=== PATIENT | male | born 1995 | race Caucasian/White ===

== ENCOUNTER 2017-11-27 11:11 | Emergency (ER) | payer OTHER ==
--- NOTE | 2017-11-27 11:44 | ER Document Report ---
ED Medical Screen (RME) - General Mode of Arrival: Ambulatory Information source: Patient TRAVEL OUTSIDE OF THE [place] IN LAST 30 DAYS: Yes <HAILEY CHAUDHARI - Last Filed: 11/27/17 11:39> <FLAVIO VELOZ - Last Filed: 11/27/17 12:24> - General Chief Complaint: Abdominal Pain Stated Complaint: ABDOMINAL PAIN Time Seen by Provider: 11/27/17 11:34 Notes: Patient is a 22 year old male presenting to the emergency department complaining of left flank pain and left lower abdominal pain onset 1 week ago worsening this morning. Patient states the pain starts on the left side of his lower back and radiates into his left lower abdomen. He describes the pain as a stabbing. Patient reports receiving 2 new back tattoos. He denies any chest pain, trouble breathing, dysuria, hematuria, rash, fevers, new shoes or exercise routines, recent trauma or injury. GENERAL: Alert, interacts well. No acute distress. HEAD: Normocephalic, Atraumatic. NECK: Full range of motion. Supple. Trachea midline. LUNGS: Clear to auscultation bilaterally, no wheezes, rales, or rhonchi. No respiratory distress. HEART: Regular rate and rhythm. No murmurs, gallops, or rubs. ABDOMEN: Soft, LUQ tenderness to palpation. Non-distended. Bowel sounds present in all 4 quadrants. EXTREMITIES: Moves all four extremities spontaneously. PSYCH: Normal affect, normal mood. SKIN: No rashes or lesions noted. BACK: Left flank tenderness to palpation. I have greeted and performed a rapid initial assessment of this patient. A comprehensive ED assessment and evaluation of the patient, analysis of test results and completion of the medical decision making process will be conducted by additional ED providers. (HAILEY CHAUDHARI) - Related Data Allergies/Adverse Reactions: No Known Allergies Allergy (Verified 11/27/17 11:12) Past Medical History - Social History Chew tobacco use (# tins/day): No Frequency of alcohol use: Occasional Drug Abuse: None Renal/ Medical History: Denies: Hx Peritoneal Dialysis <HAILEY CHAUDHARI - Last Filed: 11/27/17 11:39> - Vital signs Vitals: Temp Pulse Resp BP Pulse Ox 98.5 F 57 L 16 139/88 H 100 11/27/17 11:21 11/27/17 11:21 11/27/17 11:21 11/27/17 11:21 11/27/17 11:21 Course - Laboratory Result Diagrams: 11/27/17 11:45 11/27/17 11:45 <FLAVIO VELOZ - Last Filed: 11/27/17 12:24> - Vital Signs Vital signs: Temp Pulse Resp BP Pulse Ox 98.5 F 57 L 16 139/88 H 100 11/27/17 11:21 11/27/17 11:21 11/27/17 11:21 11/27/17 11:21 11/27/17 11:21 - Laboratory Laboratory results interpreted by me: 11/27/17 11/27/17 11:45 11:45 Sodium 145.8 H AST 15 L Urine Protein 30 H Urine Blood LARGE H
[2017-11-27 11:58] LABS: ABSOLUTE BASOPHILS # (AUTO) 0.1 10^3/uL (0.0-0.2); ABSOLUTE EOSINOPHILS # (AUTO) 0.4 10^3/uL (0.0-0.6); ABSOLUTE LYMPHOCYTES (AUTO) 1.8 10^3/uL (0.5-4.7); ABSOLUTE MONOCYTES (AUTO) 0.7 10^3/uL (0.1-1.4); ABSOLUTE NEUT (AUTO) 3.7 10^3/uL (1.7-8.2); BASOPHILS % (AUTO) 0.9 % (0-2); EOSINOPHILS % (AUTO) 5.8 % (0-6); HEMATOCRIT 45.2 % (37.9-51.0); HEMOGLOBIN 15.3 g/dL (13.5-17.0); LYMPHOCYTES % (AUTO) 27.1 % (13-45); MEAN CORPUSCULAR HEMOGLOBIN 29.6 pg (27.0-33.4); MEAN CORPUSCULAR HGB CONC 33.8 g/dL (32.0-36.0); MEAN CORPUSCULAR VOLUME 87 fl (80-97); MONOCYTES % (AUTO) 11.1 % (3-13); PLATELET COUNT 286 10^3/uL (150-450); RED BLOOD COUNT 5.18 10^6/uL (4.35-5.55); RED CELL DISTRIBUTION WIDTH 13.4 % (11.5-14.0); SEGMENTED NEUTROPHILS % (AUTO) 55.1 % (42-78); TOTAL CELLS COUNTED % (AUTO) 100 %; WHITE BLOOD COUNT 6.7 10^3/uL (4.0-10.5)
[2017-11-27 12:15] LABS: ALANINE AMINOTRANSFERASE 23 U/L (21-72); ALBUMIN 4.8 g/dL (3.5-5.0); ALKALINE PHOSPHATASE 117 U/L (38-126); ANION GAP 12 (5-19); ASPARTATE AMINO TRANSFERASE 15 U/L (17-59); BILIRUBIN,DIRECT 0.1 mg/dL (0.0-0.4); BILIRUBIN,TOTAL 1.1 mg/dL (0.2-1.3); BLOOD UREA NITROGEN 13 mg/dL (7-20); CALCIUM 9.9 mg/dL (8.4-10.2); CARBON DIOXIDE 29 mmol/L (22-30); CHLORIDE 105 mmol/L (98-107); GLUCOSE 95 mg/dL (75-110); POTASSIUM 4.5 mmol/L (3.6-5.0); SODIUM 145.8 mmol/L (137-145); TOTAL PROTEIN 7.6 g/dL (6.3-8.2)
[2017-11-27 12:19] LABS: APPEARANCE,URINE SLIGHTLY-CLOUDY; BILIRUBIN,URINE NEGATIVE (NEGATIVE); COLOR,URINE AMBER; GLUCOSE, URINE NEGATIVE (NEGATIVE); KETONES,URINE NEGATIVE (NEGATIVE); LEUKOCYTE ESTERASE,URINE NEGATIVE (NEGATIVE); NITRITE,URINE NEGATIVE (NEGATIVE); PROTEIN,URINE 30 mg/dL (NEGATIVE); URINE SPECIFIC GRAVITY 1.023; UROBILINOGEN,URINE NEGATIVE mg/dL (<2.0)
[2017-11-27] MEDS ORDERED: KETOROLAC TROMETHAMINE INJ/PF 30 MG/1 ML SDV IV ONE (12:24)
[2017-11-27] MEDS ORDERED: NORMAL SALINE 500 ML IV ONE (12:24)
--- NOTE | 2017-11-27 12:30 | ER Document Report ---
ED General - General Chief Complaint: Abdominal Pain Stated Complaint: ABDOMINAL PAIN Time Seen by Provider: 11/27/17 11:34 Mode of Arrival: Ambulatory TRAVEL OUTSIDE OF THE [place] IN LAST 30 DAYS: Yes - HPI Notes: Patient is a 22-year-old male with no significant past medical history who presents to the ED complaining of left flank pain that radiates around into his groin intermittently over the last week. Patient states that the pain is worse usually in the mornings. Patient states that his urine is very dark and believes that there may be blood in his urine as well. Patient does have associated nausea and vomiting when the pain is severe. He denies any injury. He is still eating and drinking without any difficulties otherwise. He is having normal bowel movements. He has not noticed any lumps or bumps in his groin. He has not had any urethral discharge or testicular/penile pain. Denies any drug allergies. Denies any headache, fever, neck pain, URI, sore throat, chest pain, palpitations, syncope, cough, shortness of breath, wheeze, dyspnea, diarrhea, urinary retention, loss of control of bowel or bladder, numbness/tingling, saddle anesthesia, muscle paralysis/weakness, or rash. - Related Data Allergies/Adverse Reactions: No Known Allergies Allergy (Verified 11/27/17 11:12) Past Medical History - General Information source: Patient - Social History Smoking Status: Current Every Day Smoker Chew tobacco use (# tins/day): No Frequency of alcohol use: Occasional Drug Abuse: None Family History: Reviewed & Not Pertinent Patient has suicidal ideation: No Patient has homicidal ideation: No Renal/ Medical History: Denies: Hx Peritoneal Dialysis Review of Systems - Review of Systems -: Yes All other systems reviewed and negative Physical Exam - Vital signs Vitals: Temp Pulse Resp BP Pulse Ox 98.5 F 57 L 16 139/88 H 100 11/27/17 11:21 11/27/17 11:21 11/27/17 11:21 11/27/17 11:21 11/27/17 11:21 - Notes Notes: PHYSICAL EXAMINATION: GENERAL: Well-appearing, well-nourished and in no acute distress. HEAD: Atraumatic, normocephalic. EYES: Pupils equal round and reactive to light, extraocular movements intact, sclera anicteric, conjunctiva are normal. ENT: Nares patent and without discharge. oropharynx clear without exudates. No tonsilar hypertrophy or erythema. Moist mucous membranes. NECK: Normal range of motion, supple without lymphadenopathy LUNGS: Breath sounds clear to auscultation bilaterally and equal. No wheezes rales or rhonchi. HEART: Regular rate and rhythm without murmurs, rubs, gallops. ABDOMEN: Soft, nondistended abdomen. No guarding, no rebound. No masses appreciated. Normal bowel sounds present. + left CVA tenderness. + left lower quadrant/inguinal area tenderness. : No obvious hernia, lymphadenopathy, erythema, ecchymosis, or swelling noted. Non-tender to palpation of the penis/scrotum/testes. No abnormal masses palpated. No urethral discharge. Back: FROM. Strength 5+/5. No erythema, swelling, abscess, or deformity noted. Non-tender to palp down midline. Musculoskeletal: FROM to passive/active. Strength 5+/5. Extremities: No cyanosis, clubbing, or edema b/l. Peripheral pulses 2+. Capillary refill less than 3 seconds. NEUROLOGICAL: Normal speech, normal gait. PSYCH: Normal mood, normal affect. SKIN: Warm, Dry, normal turgor, no rashes or lesions noted. Course - Re-evaluation Re-evalutation: 11/27/17 13:[address] Bear who is in agreement with dispo/plan: Patient is an afebrile, well-hydrated, 22-year-old male who presents to the ED with a yeast infection and left flank pain/Lt lower abdominal pain unspecified. We suspect that he may have recently passed a stone. Vitals are acceptable without significant tachycardia, tachypnea, or hypoxia. PE is otherwise unremarkable. Evaluation of the patient's exam did not elicit any tenderness or signs of infection. CBC, CMP were unremarkable for acute pathology. Urinalysis showed hematuria and yeast without signs of infection otherwise. CT scan was unremarkable for any acute pathology. Patient is nontoxic-appearing is tolerating p.o. without difficulties. He was given Toradol IV. No other labs or imaging warranted at this time based on H&P. Low suspicion/risk for acute appendicitis, bowel obstruction, acute cholecystitis, perforated diverticulitis, incarcerated hernia, pancreatitis, perforated ulcer, peritonitis, sepsis, testicular torsion, or other systemic emergent condition at this time. Patient is aware that his condition can change from initial presentation and he needs to monitor symptoms closely and seek medical attention if any acute changes. Conservative measures otherwise for symptoms. Recheck with PCM in 2-3 days. Call urology tomorrow to schedule an appointment for further evaluation and management. Return to the ED with any worsening/ concerning symptoms otherwise as reviewed in discharge. Patient is in agreement. - Vital Signs Vital signs: Temp Pulse Resp BP Pulse Ox 98.5 F 57 L 16 139/88 H 100 11/27/17 11:21 11/27/17 11:21 11/27/17 11:21 11/27/17 11:21 11/27/17 11:21 - Laboratory Result Diagrams: 11/27/17 11:45 11/27/17 11:45 Laboratory results interpreted by me: 11/27/17 11/27/17 11:45 11:45 Sodium 145.8 H AST 15 L Urine Protein 30 H Urine Blood LARGE H Discharge - Discharge Clinical Impression: Left flank pain, Lower abdominal pain, unspecified, Yeast UTI Condition: Stable Disposition: HOME, SELF-CARE Instructions: Abdominal Pain ([facility]), Antinausea Medication ([facility]) Additional Instructions: Push fluids (i.e. water, cranberry juice) Proper hygenic technique Keep the skin clean Tylenol/ibuprofen as needed Take medications as directed F/u with your PCM in 2-3 days for a recheck Call a urologist tomorrow for further evaluation and management Return to the ED with any worsening symptoms and/or development of fever, headache, chest pain, palpitations, syncope, shortness of breath, trouble breathing, abdominal pain, n/v/d, blood in stool/urine, loss of control of bowel /bladder, urinary retention, or other worsening symptoms that are concerning to you. Prescriptions: Fluconazole [Diflucan] 150 mg PO ONCE PRN #1 tablet PRN Reason: Ondansetron [Zofran Odt 4 mg Tablet] 1 - 2 tab PO Q4H PRN #15 tab.rapdis PRN Reason: For Nausea/Vomiting Forms: Elevated Blood Pressure Referrals: MEREDITH SALMERON MD [[facility]] - Follow up in 3-5 days ZHANNA LUONG II, MD [[facility]] - Follow up in 3-5 days
--- NOTE | 2017-11-27 13:27 | RADIOLOGY REPORT (SQ) ---
EXAM DESCRIPTION: CT LTD RENAL STONE PROTOCOL ON COMPLETED DATE/TIME: 11/27/2017 12:38 pm REASON FOR STUDY: Left flank pain COMPARISON: None. TECHNIQUE: CT scan of the abdomen and pelvis performed without intravenous or oral contrast. Images reviewed with lung, soft tissue, and bone windows. Reconstructed coronal and sagittal MPR images revi ewed. All images stored on PACS. All CT scanners at this facility use dose modulation, iterative reconstruction, and/or weight based d osing when appropriate to reduce radiation dose to as low as reasonably achievable (ALARA). [facility]: Dose Right [facility]: CareDose [facility]: Dose Right [facility]: Teradose 4D [facility]: [employer] RADIATION DOSE: CT Rad equipment meets quality standard of care and radiation dose reduction techniq ues were employed. CTDIvol: 5.8 mGy. DLP: 301 mGy-cm.mGy. LIMITATIONS: None. FINDINGS: LOWER CHEST: No abnormality seen. NON-CONTRASTED LIVER, SPLEEN, ADRENALS: Liver: No abnormality. Spleen: No abnormality. Adrenals: No abnormality. PANCREAS: No abnormality. GALLBLADDER: No abnormality. RIGHT KIDNEY AND URETER: No abnormality. LEFT KIDNEY AND URETER: No abnormality. AORTA AND RETROPERITONEUM: No abnormality. BOWEL AND PERITONEAL CAVITY: No abnormality. APPENDIX: No abnormality. PELVIS, BLADDER, AND ABDOMINAL WALL:Urinary bladder: No abnormality. Prostate and seminal vesicles: No abnormality. BONES: No abnormality. IMPRESSION: NO SIGNIFICANT OR ACUTE PROCESS IN THE ABDOMEN OR PELVIS. COMMENT: Quality ID # [id number]: Final reports with documentation of one or more dose reduction techniques (e.g., Automated exposure control, adjustment of the mA and/or kV according to patient size, use of iterative reconstruction technique) TECHNICAL DOCUMENTATION: JOB ID: [id number] 2010 [employer]- All Rights Reserved Reading location - IP/workstation name: [email or web address]
[2017-11-27] MEDS ORDERED: MORPHINE SULFATE 10 MG/ML INJ IV ONE (13:50)
[2017-11-27 14:18] VITALS: BP 129/89
== END 2017-11-27 14:17 | disposition home or self-care (01) ==
LOC: ER 11:11 → EDBD 11:11 → ER 14:17
DX: B37.49 Other urogenital candidiasis (principal); R31.9 Hematuria, unspecified; R10.9 Unspecified abdominal pain; R10.32 Left lower quadrant pain; R11.2 Nausea with vomiting, unspecified; F17.200 Nicotine dependence, unspecified, uncomplicated
CPT/HCPCS: 99284; 96361; 96374; 96375; 36415; 85025; 80053; 81001; 76380; J1885; J2270; J7040